=== PATIENT | male | born 1950 | race Caucasian/White ===

== ENCOUNTER 2020-06-21 09:47 | Inpatient (IN) ==
[2020-06-21] MEDS ORDERED: morphine 10 MG/ML VIAL IV PRN (10:17)
[2020-06-21] MEDS ORDERED: PROCHLORPERAZINE 10 MG/2 ML VIAL IV ONE (10:17)
--- NOTE | 2020-06-21 10:27 | Emergency Department Note ---
Extremity Problem HPI General Chief complaint: Extremity Problem,Nontraumatic Stated complaint: right leg swelling Time Seen by Provider: 06/21/20 09:57 Source: patient, RN notes reviewed and old records reviewed Mode of arrival: ambulatory Limitations: no limitations History of Present Illness HPI Narrative: Narrative: MD Complaint: extremity pain and extremity swelling Onset (ago): week(s) (2) Consistency: constant Location: right and lower extremity Quality: aching Improves with: immobilization and elevation Worsens with: range of motion, walking and exertion Associated symptoms: Reports shortness of breath; Denies chest pain, fever, arthralgias and rash Context: history of DVT Related Data Home Medications Medication Instructions Recorded Confirmed warfarin 6 mg PO DAILY 06/20/15 06/21/20 bupropion HBr 174 mg 174 mg PO QAM 09/15/16 06/21/20 tablet,extended release 24 hr omeprazole 40 mg capsule,delayed 40 mg PO QDAY 09/15/16 06/21/20 release duloxetine 90 mg PO DAILY 06/21/20 06/21/20 lisinopril 40 mg PO DAILY 06/21/20 06/21/20 lisinopril mg PO 06/21/20 metoprolol succinate 50 mg PO DAILY 06/21/20 06/21/20 Previous Rx's Medication Instructions Recorded albuterol sulfate 90 mcg/actuation 2 puff INHALATION Q4HP PRN #1 04/09/15 aerosol inhaler inhaler Allergies Allergy/AdvReac Type Severity Reaction Status Date / Time Amoxicillin [From Augmentin] Allergy Mild Itching Verified 05/12/20 10:49 Review of Systems ROS ROS Narrative: Narrative: Constitutional: Denies fever, chills and weakness Eyes: Denies vision change ENT ED: Denies throat pain Cardiovascular: Denies chest pain Respiratory: Reports shortness of breath, cough and wheezes Gastrointestinal: Reports other (Occasional bright red blood per rectum); Denies abdominal pain Musculoskeletal: Reports other (Swelling to right lower extremity); Denies back pain Integumentary: Denies rash Neurological: Denies headache Psychiatric: Denies depression Endocrine: Denies fatigue Hematological/Lymphatic: Denies easy bruising Allergic/Immunologic: Denies urticaria PFSH Narrative Patient History Narrative: Narrative: Medical/Surgical/Family History All Active Problems (Updated 06/21/20 @ 13:40 by Td Mckeon MD) Scalp laceration (Acute) Influenza (Acute) Chest wall trauma (Acute) DVT of axillary vein, acute right (Acute) History of colon polyps (Chronic) Rosacea (Chronic) Skin cancer (Chronic) Pneumothorax, iatrogenic (Chronic) Lung nodule (Chronic) Recurrent pneumonia (Chronic) Erectile dysfunction (Chronic) Peripheral edema (Chronic) Swollen feet (Chronic) Bleeding hemorrhoids (Chronic) Encounter for smoking cessation counseling (Chronic) Hematuria (Chronic) COPD exacerbation (Chronic) Pneumonia (Chronic) Pulmonary infiltrate in left lung on chest x-ray (Chronic) Mass of left lung (Chronic) Basosquamous carcinoma (Chronic) Anticoagulant long-term use (Chronic) Suicidal ideation (Chronic) Suicidal behavior (Chronic) Parkinson's disease (Chronic) Obesity (Chronic) Skin lesion (Chronic) Factor V Leiden mutation (Chronic) IBS (irritable bowel syndrome) (Chronic) Hypertension, essential (Chronic) Hyperlipidemia (Chronic) Hearing loss (Chronic) GERD (gastroesophageal reflux disease) (Chronic) Diabetes mellitus, type II (Chronic) Depressive disorder (Chronic) Medical History Anticoagulant long-term use Basosquamous carcinoma 10/17/2014 - Dr. Cobos: Skin biopsy of left posterior auricular, margins free of involvment Bleeding hemorrhoids COPD exacerbation Depressive disorder Diabetes mellitus, type II Encounter for smoking cessation counseling Erectile dysfunction Factor V Leiden mutation GERD (gastroesophageal reflux disease) Hearing loss Bilateral Hematuria History of colon polyps Hyperlipidemia Hypertension, essential IBS (irritable bowel syndrome) Lung nodule Mass of left lung Obesity Parkinson's disease Peripheral edema Pneumonia Pneumothorax, iatrogenic Pulmonary infiltrate in left lung on chest x-ray Recurrent pneumonia Rosacea Skin cancer Skin lesion 12/27/2013 Suicidal behavior Attempt and tendency Suicidal ideation Swollen feet Surgical History History of adenoidectomy History of colectomy History of ear surgery numerous History of vasectomy Status post biopsy of skin 10/17/2014 - Dr. Cobos: Left Posterior Auricular (Blue - 12 O'clock) Family History Other No pertinent family history Social History Smoking Status: Current every day smoker Alcohol Intake Frequency: 0-2 drinks per day Substance Use: does not use Exam Narrative Narrative: Narrative: General Limitations: no limitations General appearance: Present alert and in no apparent distress Head Head: Present atraumatic and normocephalic Eye Eye: Present normal appearance, PERRL and EOMI ENT ENT: Present normal exam and mucous membranes moist Neck Neck: Present normal inspection and full ROM Chest Chest: Present normal inspection; Absent tenderness Respiratory Respiratory: Present wheezes; Absent respiratory distress, rales/crackles and stridor Cardiovascular Cardiovascular: Present regular rate, normal rhythm and systolic murmur Adbominal Abdominal: Present soft; Absent distention, tenderness, guarding and rebound Extremities Extremities: Present full ROM, tenderness, normal capillary refill, pedal edema, pretibial edema and calf tenderness Back Back: Present normal inspection; Absent CVA tenderness (R) and CVA tenderness (L) Neurological Neurological: Present alert and oriented X3 Psychiatric Psychiatric: Present normal affect and normal mood Skin Skin: Present warm (WNL); Absent rash Course Vital Signs Vital signs: Vital Signs Temperature 97 F 06/21/20 09:53 Pulse Rate 84 06/21/20 09:53 Respiratory Rate 30 H 06/21/20 09:53 Blood Pressure 160/100 06/21/20 09:53 Pulse Oximetry (%) 98 06/21/20 09:53 Temperature 97 F 06/21/20 09:53 Pulse Rate 72 06/21/20 14:31 Respiratory Rate 22 06/21/20 14:31 Blood Pressure 149/95 06/21/20 14:31 Pulse Oximetry (%) 96 06/21/20 14:31 [facility] MDM Narrative Medical decision making narrative: Narrative: Patient with a history of DVT in the right lower extremity 2 years ago complains of similar presentation patient is currently on warfarin with therapeutic INR. Doppler ultrasound reveals a large acute DVT in the left lower extremity up to the femoral vein. Patient is required pain medicines for the discomfort. Discussed patient with Dr. Davidson of interventional radiology who feels that he the patient is not a candidate for point thrombolysis or thrombectomy. Recommendation is to place patient on heparin and transition to Xarelto. If the patient no shows no improvement on heparin consider thrombolysis. Lab Data Result diagrams: 06/21/20 10:30 06/21/20 10:30 Labs: Lab Results 06/21/20 06/21/20 06/21/20 Range/Units 10:30 10:30 10:30 WBC 5.3 (4.5-11.0) K/mcL RBC 4.69 (4.50-5.90) M/mcL Hgb 14.6 (13.5-16.5) g/dL Hct 44.0 (41.0-55.0) % MCV 93.8 (80.0-100.0) fL MCH 31.1 (26.0-34.0) pg MCHC 33.2 (31.0-36.0) g/dL RDW 17.2 H (11.5-14.5) % Plt Count 236 (140-440) K/mcL MPV 9.6 (7.4-10.4) fL Neut % (Auto) 69.6 (38.0-78.0) % Lymph % (Auto) 19.0 (15.0-49.0) % [place] % (Auto) 8.9 (1.0-12.0) % Eos % (Auto) 1.7 (0.0-7.0) % Baso % (Auto) 0.8 (0.0-2.0) % Lymph # (Auto) 1.01 L (1.50-4.80) K/mcL [place] # (Auto) 0.47 (0.10-0.90) K/mcL Eos # (Auto) 0.09 (0.00-0.70) K/mcL Baso # (Auto) 0.04 (0.00-0.20) K/mcL Absolute Neutrophils 3.70 (1.80-8.00) K/mcL PT 22.7 H (11.9-14.5) sec INR 1.9 H (0.9-1.1) D-Dimer (0.27-0.50) ug/mL Sodium 138 (133-145) mmol/L Potassium 3.3 (3.3-5.1) mmol/L Chloride 101 (96-108) mmol/L Carbon Dioxide 28 (22-30) mmol/L Anion Gap 9.0 (8.0-16.0) BUN 10 (8-23) mg/dL Creatinine 0.7 (0.7-1.2) mg/dL GFR Calculation 97 Glucose 104 (70-105) mg/dL Calcium 8.4 L (8.6-10.4) mg/dL Total Bilirubin 0.6 (0.1-1.0) mg/dL AST 28 (<40) U/L ALT 13 (<40) U/L Alkaline Phosphatase 117 (39-117) U/L Total Protein 6.5 (5.9-8.4) gm/dL Albumin 3.3 (3.2-5.2) gm/dL Globulin 3.2 (2.2-3.7) gm/dL Albumin/Globulin Ratio 1.0 (1.0-2.3) 06/21/20 Range/Units 10:30 WBC (4.5-11.0) K/mcL RBC (4.50-5.90) M/mcL Hgb (13.5-16.5) g/dL Hct (41.0-55.0) % MCV (80.0-100.0) fL MCH (26.0-34.0) pg MCHC (31.0-36.0) g/dL RDW (11.5-14.5) % Plt Count (140-440) K/mcL MPV (7.4-10.4) fL Neut % (Auto) (38.0-78.0) % Lymph % (Auto) (15.0-49.0) % [place] % (Auto) (1.0-12.0) % Eos % (Auto) (0.0-7.0) % Baso % (Auto) (0.0-2.0) % Lymph # (Auto) (1.50-4.80) K/mcL [place] # (Auto) (0.10-0.90) K/mcL Eos # (Auto) (0.00-0.70) K/mcL Baso # (Auto) (0.00-0.20) K/mcL Absolute Neutrophils (1.80-8.00) K/mcL PT (11.9-14.5) sec INR (0.9-1.1) D-Dimer 3.84 H (0.27-0.50) ug/mL Sodium (133-145) mmol/L Potassium (3.3-5.1) mmol/L Chloride (96-108) mmol/L Carbon Dioxide (22-30) mmol/L Anion Gap (8.0-16.0) BUN (8-23) mg/dL Creatinine (0.7-1.2) mg/dL GFR Calculation Glucose (70-105) mg/dL Calcium (8.6-10.4) mg/dL Total Bilirubin (0.1-1.0) mg/dL AST (<40) U/L ALT (<40) U/L Alkaline Phosphatase (39-117) U/L Total Protein (5.9-8.4) gm/dL Albumin (3.2-5.2) gm/dL Globulin (2.2-3.7) gm/dL Albumin/Globulin Ratio (1.0-2.3) Radiology Data Radiology results reviewed: Yes I reviewed the patient's radiology results. Radiology results narrative: Doppler shows acute DVT entire rightlower extremity. 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: No Clinical Impression: Factor V Leiden mutation, DVT of axillary vein, acute right Patient Disposition: Xfer As Inpt ([facility]) Follow up with: Claudette Minor MD [Primary Care Provider] - Prescriptions: No Action albuterol sulfate 1 PUFF inhaler 2 puff INHALATION Q4HP PRN (Reason: wheezing ) Qty: 1 RF: 1 warfarin 4 MG tablet 6 mg PO DAILY RF: 0 metoprolol succinate 50 mg tablet extended release 24 hr 50 mg PO DAILY RF: 0 lisinopril 40 mg tablet PO RF: 0 lisinopril 40 mg tablet 40 mg PO DAILY RF: 0 duloxetine 30 mg capsule,delayed release(DR/EC) 90 mg PO DAILY RF: 0 omeprazole 40 mg capsule,delayed release(DR/EC) 40 mg PO QDAY RF: 0 bupropion HBr 174 mg tablet extended release 24 hr 174 mg PO QAM RF: 0
[2020-06-21 11:18] LABS: Basophils # (Auto) 0.04 K/mcL (0.00-0.20); Basophils % (Auto) 0.8 % (0.0-2.0); Eosinophils # (Auto) 0.09 K/mcL (0.00-0.70); Eosinophils % (Auto) 1.7 % (0.0-7.0); Hemoglobin 14.6 g/dL (13.5-16.5); Lymphocytes # (Auto) 1.01 K/mcL (1.50-4.80); Mean Cell Volume 93.8 fL (80.0-100.0); Mean Corpuscular HGB Conc 33.2 g/dL (31.0-36.0); Mean Platelet Volume 9.6 fL (7.4-10.4); Monocytes # (Auto) 0.47 K/mcL (0.10-0.90); Monocytes % (Auto) 8.9 % (1.0-12.0); Neutrophils % (Auto) 69.6 % (38.0-78.0); Platelet Count 236 K/mcL (140-440); RBC 4.69 M/mcL (4.50-5.90); Red Cell Distribution Width 17.2 % (11.5-14.5); WBC 5.3 K/mcL (4.5-11.0)
--- NOTE | 2020-06-21 11:24 | XRay Report ---
INDICATION: SOB history of COPD TECHNIQUE: AP portable upright chest x-ray COMPARISON: Previous chest x-rays dated 03/07/2019, 04/24/2015 FINDINGS: Lungs:No parenchymal consolidation. Mild interstitial density at the left lung base is probably chronic. No new abnormality. Heart, vascular:No significant cardiomegaly. Pulmonary vascularity is normal. No pulmonary edema or pulmonary congestion Mediastinum, andre:No mediastinal widening. No hilar mass Pleura:No pleural fluid. No pleural-based mass or calcification Skeletal:Negative. IMPRESSION: 1. COPD 2. No acute abnormality. Interpreted and Authenticated by: Adonis Díaz 06/21/20
[2020-06-21 11:34] LABS: INR 1.9 (0.9-1.1); Prothrombin Time 22.7 sec (11.9-14.5)
--- NOTE | 2020-06-21 11:38 | Ultrasound Report ---
INDICATION: Pain and swelling COMPARISON: None. TECHNIQUE: Grayscale and color flow Doppler spectral imaging of the deep venous system in the right lower extremity. FINDINGS: Extensive acute deep venous thrombosis. There is acute DVT in the left femoral vein, popliteal vein, peroneal veins. Common femoral vein, greater saphenous vein, and posterior tibial veins are patent IMPRESSION: Acute deep venous thrombosis in the left femoral vein, popliteal vein, and peroneal veins Interpreted and Authenticated by: Adonis Díaz 06/21/20
[2020-06-21 11:41] LABS: ALT/SGPT 13 U/L (<40); AST/SGOT 28 U/L (<40); Albumin 3.3 gm/dL (3.2-5.2); Alkaline Phosphatase 117 U/L (39-117); Bilirubin,Total 0.6 mg/dL (0.1-1.0); Blood Urea Nitrogen 10 mg/dL (8-23); Calcium 8.4 mg/dL (8.6-10.4); Carbon Dioxide 28 mmol/L (22-30); Chloride 101 mmol/L (96-108); Globulin 3.2 gm/dL (2.2-3.7); Glomerular Filtration Rate 97; Glucose 104 mg/dL (70-105)
[2020-06-21] MEDS ORDERED: HEPARIN 5,000 UNIT/ML VIAL IV ONE (14:05)
--- NOTE | 2020-06-21 15:19 | Internal Med History&Physical ---
HPI History of Present Illness Patient information: Note initiated : 06/21/20 at 3:17 pm Service Date, if different from initiated Date: [] Patient: Tashi Robison 70 y/o M admitted on for right leg swelling. Chief Complaint: [] History of present illness: Mr. Robison is a 70 year old with a history of DVT, factor V Leiden, hypertension, GERD, depression presented to the emergency department for right lower extremity swelling and found to have an extensive right lower extremity DVT. The patient says that he has had DVTs in the right lower extremity before as well as intra-abdominal veins. The patient was taking Coumadin history of DVT in the setting of factor Leiden however INR is 9 in the ED. The patient says that his last INR was about 1.6 a week ago. Patient says he noticed the right lower extremity edema starting about 2 weeks ago. In the ED, diagnosis was made with a right lower extremity venous duplex which showed acute deep vein thrombosis in the left femoral vein, popliteal veins, and peroneal veins. The common femoral vein, greater saphenous vein, and posterior tibial veins were patent. The ED provider discussed the case with interventional radiology at [facility] in [facility]. Interventional radiology recommended anticoagulation for a couple days and monitoring for progress. In the patient's edema does not improve then eventual radiology would consider catheter directed thrombolysis as an extensive DVT. The patient was admitted for anticoagulation with heparin and close monitoring. The patient is at risk for pulmonary embolism given the extensive nature of the DVT. Review of systems Constitutional: no fever, fatigue, or weight loss Eyes: no vision changes or pain Cardiovascular: no chest pain, no palpitations Respiratory: no cough or dyspnea Gastrointestinal: Mild abdominal discomfort, no nausea, vomiting, or diarrhea Genitourinary: no dysuria or difficulty voiding Musculoskeletal: Positive for right lower extremity edema Integumentary: no skin lesion or wound Neurological: no focal weakness or numbness Psychiatric: no anxiety or depression PFSH PFSH All Active Problems (Updated 06/21/20 @ 13:40 by Td Mckeon MD) Scalp laceration (Acute) Influenza (Acute) Chest wall trauma (Acute) DVT of axillary vein, acute right (Acute) History of colon polyps (Chronic) Rosacea (Chronic) Skin cancer (Chronic) Pneumothorax, iatrogenic (Chronic) Lung nodule (Chronic) Recurrent pneumonia (Chronic) Erectile dysfunction (Chronic) Peripheral edema (Chronic) Swollen feet (Chronic) Bleeding hemorrhoids (Chronic) Encounter for smoking cessation counseling (Chronic) Hematuria (Chronic) COPD exacerbation (Chronic) Pneumonia (Chronic) Pulmonary infiltrate in left lung on chest x-ray (Chronic) Mass of left lung (Chronic) Basosquamous carcinoma (Chronic) Anticoagulant long-term use (Chronic) Suicidal ideation (Chronic) Suicidal behavior (Chronic) Parkinson's disease (Chronic) Obesity (Chronic) Skin lesion (Chronic) Factor V Leiden mutation (Chronic) IBS (irritable bowel syndrome) (Chronic) Hypertension, essential (Chronic) Hyperlipidemia (Chronic) Hearing loss (Chronic) GERD (gastroesophageal reflux disease) (Chronic) Diabetes mellitus, type II (Chronic) Depressive disorder (Chronic) Medical History Anticoagulant long-term use Basosquamous carcinoma 10/17/2014 - Dr. Cobos: Skin biopsy of left posterior auricular, margins free of involvment Bleeding hemorrhoids COPD exacerbation Depressive disorder Diabetes mellitus, type II Encounter for smoking cessation counseling Erectile dysfunction Factor V Leiden mutation GERD (gastroesophageal reflux disease) Hearing loss Bilateral Hematuria History of colon polyps Hyperlipidemia Hypertension, essential IBS (irritable bowel syndrome) Lung nodule Mass of left lung Obesity Parkinson's disease Peripheral edema Pneumonia Pneumothorax, iatrogenic Pulmonary infiltrate in left lung on chest x-ray Recurrent pneumonia Rosacea Skin cancer Skin lesion 12/27/2013 Suicidal behavior Attempt and tendency Suicidal ideation Swollen feet Surgical History History of adenoidectomy History of colectomy History of ear surgery numerous History of vasectomy Status post biopsy of skin 10/17/2014 - Dr. Cobos: Left Posterior Auricular (Blue - 12 O'clock) Family History Other No pertinent family history Social History (Updated 09/15/16 @ 11:16 by Carissa Mckeon RN) marital status: occupational status: retired and disabled physical activity: none alcohol intake frequency: 0-2 drinks per day substance use type: does not use MEDS/ALLERGIES Home Medications and Allergies Home Medications Medication Instructions Recorded Confirmed Type albuterol sulfate 90 mcg/actuation 2 puff INHALATION Q4HP PRN #1 04/09/15 06/21/20 Rx aerosol inhaler inhaler warfarin 6 mg PO DAILY 06/20/15 06/21/20 History bupropion HBr 174 mg 174 mg PO QAM 09/15/16 06/21/20 History tablet,extended release 24 hr omeprazole 40 mg capsule,delayed 40 mg PO QDAY 09/15/16 06/21/20 History release duloxetine 90 mg PO DAILY 06/21/20 06/21/20 History lisinopril 40 mg PO DAILY 06/21/20 06/21/20 History lisinopril mg PO 06/21/20 History metoprolol succinate 50 mg PO DAILY 06/21/20 06/21/20 History Allergies Allergy/AdvReac Type Severity Reaction Status Date / Time Amoxicillin [From Augmentin] Allergy Mild Itching Verified 05/12/20 10:49 EXAM Constitutional Vitals: Temp Pulse Resp BP Pulse Ox 97 F 72 22 149/95 96 06/21/20 09:53 06/21/20 14:31 06/21/20 14:31 06/21/20 14:31 06/21/20 14:31 Additional findings Additional findings: Head: Atraumatic, normal inspection. Eyes: normal appearance, no scleral icterus. Neck: full ROM Respiratory: no respiratory distress. Cardiovascular: normal rate and rhythm, S1, S2. GI/Abdominal: soft, nontender, no guarding. Extremities: Right lower extremity edema 2+ Neurological: CN II-XII intact, intact motor, intact sensation. Psychiatric: normal mood. Skin: Bruising on bilateral, likely related to Coumadin anticoagulation DATA Data Completed and Pending Labs: Labs from last 24 hours 06/21/20 06/21/20 06/21/20 10:30 10:30 10:30 WBC RBC Hgb Hct MCV MCH MCHC RDW Plt Count MPV Neut % (Auto) Lymph % (Auto) [place] % (Auto) Eos % (Auto) Baso % (Auto) Lymph # (Auto) [place] # (Auto) Eos # (Auto) Baso # (Auto) Absolute Neutrophils PT 22.7 H INR 1.9 H D-Dimer 3.84 H Sodium 138 Potassium 3.3 Chloride 101 Carbon Dioxide 28 Anion Gap 9.0 BUN 10 Creatinine 0.7 GFR Calculation 97 Glucose 104 Calcium 8.4 L Total Bilirubin 0.6 AST 28 ALT 13 Alkaline Phosphatase 117 Total Protein 6.5 Albumin 3.3 Globulin 3.2 Albumin/Globulin Ratio 1.0 06/21/20 10:30 WBC 5.3 RBC 4.69 Hgb 14.6 Hct 44.0 MCV 93.8 MCH 31.1 MCHC 33.2 RDW 17.2 H Plt Count 236 MPV 9.6 Neut % (Auto) 69.6 Lymph % (Auto) 19.0 [place] % (Auto) 8.9 Eos % (Auto) 1.7 Baso % (Auto) 0.8 Lymph # (Auto) 1.01 L [place] # (Auto) 0.47 Eos # (Auto) 0.09 Baso # (Auto) 0.04 Absolute Neutrophils 3.70 PT INR D-Dimer Sodium Potassium Chloride Carbon Dioxide Anion Gap BUN Creatinine GFR Calculation Glucose Calcium Total Bilirubin AST ALT Alkaline Phosphatase Total Protein Albumin Globulin Albumin/Globulin Ratio A/P Narrative A/P Narrative: Assessment: 70-year-old male with history of factor V Leiden, recurrent DVTs, hypertension, GERD, tobacco use disorder, admitted for acute right lower extremity DVT in the left femoral vein, popliteal vein, peroneal veins in the setting of subtherapeutic INR. #Acute right lower extremity DVT #Factor V Leiden w/ hx recurrent DVTs #Hypertension #GERD #Depression #Tobacco use disorder Plan -Heparin infusion, monitor for 2 days. If no improvement in edema then discharged on DOAC, if no improvement then discussed with IR (Dr. Davidson). -imaging system administrator -Daily CBC, inpatient panel. -Continue essential home medications except Warfarin. -Nicotine patch and lozenges. -CODE STATUS: Full -Disposition: Home on indefinite DOAC anticoagulation versus transfer to [facility] for catheter directed thrombolysis. Time Spent With Patient Time: Total time spent is greater than 50% in coordination of care (as doc umented) at patient's floor/unit and/or counseling patient:
[2020-06-21] MEDS: morphine 2 MG/ML VIAL IV SCH (15:33)
[2020-06-21] MEDS ORDERED: ONDANSETRON 4 MG/2 ML VIAL IV PRN (16:07)
[2020-06-21] MEDS ORDERED: SENNOSIDES 1 TABLET PO PRN (16:07)
[2020-06-21] MEDS ORDERED: ALBUTEROL SULFATE 200 PUFF INHALER INH PRN (16:07)
[2020-06-21] MEDS ORDERED: LACTULOSE 20 GM/30 ML ORAL.SOL PO PRN (16:07)
[2020-06-21] MEDS: NICOTINE 21 MG PATCH TOPICAL SCH (17:51)
[2020-06-21] MEDS: HEPARIN SOD,PORK IN 0.45% NACL 25,000 UNIT in PREMIX 1 BAG IV SCH (18:06)
[2020-06-21] MEDS: DOCUSATE SODIUM 100 MG CAPSULE PO SCH (20:41)
[2020-06-21] MEDS: 0.9 % SODIUM CHLORIDE 10 ML SYRINGE IV SCH (21:41)
[2020-06-22] MEDS: morphine 2 MG/ML VIAL IV SCH ×4 (00:50→19:44)
[2020-06-22] MEDS: 0.9 % SODIUM CHLORIDE 10 ML SYRINGE IV SCH ×4 (05:31→20:29)
[2020-06-22 07:14] LABS: ALT/SGPT 15 U/L (<40); AST/SGOT 31 U/L (<40); Albumin 2.9 gm/dL (3.2-5.2); Alkaline Phosphatase 94 U/L (39-117); Bilirubin,Direct < 0.2 mg/dL (0-0.3); Bilirubin,Total 0.6 mg/dL (0.1-1.0); Blood Urea Nitrogen 8 mg/dL (8-23); Calcium 7.9 mg/dL (8.6-10.4); Carbon Dioxide 31 mmol/L (22-30); Chloride 102 mmol/L (96-108); Globulin 2.9 gm/dL (2.2-3.7); Glomerular Filtration Rate 103; Glucose 89 mg/dL (70-105); Hematocrit 40.5 % (41.0-55.0); Hemoglobin 13.5 g/dL (13.5-16.5); Lactate Dehydrogenase 204 U/L (135-225); Mean Cell Volume 93.8 fL (80.0-100.0); Mean Corpuscular HGB Conc 33.3 g/dL (31.0-36.0); Mean Platelet Volume 9.5 fL (7.4-10.4); Phosphorous 2.5 mg/dL (2.5-4.5); Platelet Count 210 K/mcL (140-440); RBC 4.32 M/mcL (4.50-5.90); Triglycerides 77 mg/dL (<150); Uric Acid 6.1 mg/dL (2.5-8.0); WBC 4.6 K/mcL (4.5-11.0)
[2020-06-22] MEDS ORDERED: MAGNESIUM SULFATE 2 GM/50 ML BAG IV ONE (07:33)
[2020-06-22] MEDS ORDERED: POTASSIUM CHLORIDE 20 MEQ TABLET PO ONE (07:33)
[2020-06-22] MEDS: DULoxetine 30 MG CAPSULE PO SCH (08:09)
[2020-06-22] MEDS: OMEPRAZOLE 20 MG CAPSULE PO SCH (08:09)
[2020-06-22] MEDS: DOCUSATE SODIUM 100 MG CAPSULE PO SCH ×2 (08:10→20:29)
[2020-06-22] MEDS: LISINOPRIL 20 MG TABLET PO SCH (08:10)
[2020-06-22] MEDS: NICOTINE 21 MG PATCH TOPICAL SCH (08:10)
[2020-06-22] MEDS: METOPROLOL SUCCINATE 50 MG TAB.XL.24H PO SCH (08:10)
[2020-06-22] MEDS: BUPROPION HBR PO SCH (08:54)
[2020-06-22] MEDS ORDERED: LABETALOL 5 MG/ML ML IV PRN (10:06)
[2020-06-22] MEDS: amLODIPine 5 MG TABLET PO SCH (11:32)
--- NOTE | 2020-06-22 12:15 | Internal Med Progress Note ---
SUBJECTIVE Subjective Patient information: Note initiated : 06/22/20 at 12:15 pm Service Date, if different from initiated Date: [] Patient: Tashi Robison 70 y/o M admitted on 06/21/20 for right leg swelling. Chief Complaint: [] Interval history: Mr. Robison is a 70 year old with a history of DVT, factor V Leiden, hypertension, GERD, depression presented to the emergency department for right lower extremity swelling and found to have an extensive right lower extremity DVT. The patient says that he has had DVTs in the right lower extremity before as well as intra-abdominal veins. The patient was taking Coumadin history of DVT in the setting of factor Leiden however INR is 9 in the ED. The patient says that his last INR was about 1.6 a week ago. Patient says he noticed the right lower extremity edema starting about 2 weeks ago. In the ED, diagnosis was made with a right lower extremity venous duplex which showed acute deep vein thrombosis in the left femoral vein, popliteal veins, and peroneal veins. The common femoral vein, greater saphenous vein, and posterior tibial veins were patent. The ED provider discussed the case with interventional radiology at [facility] in [facility]. Interventional radiology recommended anticoagulation for a couple days and monitoring for progress. In the patient's edema does not improve then eventual radiology would consider catheter directed thrombolysis as an extensive DVT. The patient was admitted for anticoagulation with heparin and close monitoring. The patient is at risk for pulmonary embolism given the extensive nature of the DVT. 06/22 Stable overnight but blood pressure elevated-added norvasc. Improvement of right lower extremity edema, continues on heparin infusion. Physical Exam ead: Atraumatic, normal inspection. Eyes: normal appearance, no scleral icterus. Neck: full ROM Respiratory: no respiratory distress. Cardiovascular: normal rate and rhythm, S1, S2. GI/Abdominal: soft, nontender, no guarding. Extremities: Right lower extremity edema-improved. Neurological: CN II-XII intact, intact motor, intact sensation. Psychiatric: normal mood. Skin: mild bruising on bilateral upper extremities Constitutional Vitals: Vital Signs Temp Pulse Resp BP Pulse Ox 98.6 F 72 21 148/101 98 06/22/20 08:00 06/22/20 10:06/22/20 10:06/22/20 10:21 10:01 Period Temp Pulse Resp BP Sys/Rm Pulse Ox Last 24 Hr 97.2 F-98.7 F 60-89 14-25 138-173/72-125 89-98 Intake and Output 06/21/20 06/22/20 06/22/20 21:59 05:59 13:59 Intake Total 0 329 333 Output Total 0 250 700 Balance 0 79 -367 Weight 80.694 kg Intake & Output: Intake & Output 06/21/20 06/22/20 06/22/20 21:59 05:59 13:59 Intake Total 0 329 333 Output Total 0 250 700 Balance 0 79 -367 Weight 80.694 kg Intake: IV 229 93 Heparin/0.45%Ns 25,000 Unit In 229 43 Premix 1 Bag @ 14 UNIT/KG/HR 23 .496 mls/hr IV .[id number] [facility] Rx# :[id number] Oral 0 100 240 Output: Void Amount 0 250 700 Other: Meal Breakfast Percent of Meal Consumed 100% Feeding Ability Independent Urine Appearance Clear Clear Urine Color Dark Penny Bright Yellow Urine Odor Normal Stool Size Small Stool Color Brown Stool Consistency Formed OBJ DATA Labs CBC & Chem 7: 06/22/20 05:00 06/22/20 05:00 Labs: Abnormal Lab Results 06/22/20 06/22/20 06/22/20 05:00 05:00 05:00 RBC 4.32 L Hct 40.5 L RDW 17.0 H Lymph # (Auto) PT INR APTT 46.1 H D-Dimer Potassium 3.1 L Carbon Dioxide 31 H Anion Gap 7.0 L Creatinine 0.6 L Calcium 7.9 L Magnesium 1.2 L Total Protein 5.8 L Albumin 2.9 L 06/22/20 06/21/20 06/21/20 02:23 10:30 10:30 RBC Hct RDW Lymph # (Auto) PT INR APTT 119.7 H D-Dimer 3.84 H Potassium Carbon Dioxide Anion Gap Creatinine Calcium 8.4 L Magnesium Total Protein Albumin 06/21/20 06/21/20 10:30 10:30 RBC Hct RDW 17.2 H Lymph # (Auto) 1.01 L PT 22.7 H INR 1.9 H APTT D-Dimer Potassium Carbon Dioxide Anion Gap Creatinine Calcium Magnesium Total Protein Albumin Meds: Medications Acetaminophen (Acetaminophen 325 Mg Tablet) 650 mg PO Q6HP PRN; Protocol PRN Reason: Per Pain Protocol/Fever > 101 Albuterol Sulfate (Albuterol Sulfate 200 Puff Inhaler) 2 puff INH Q4HP PRN PRN Reason: wheezing Amlodipine Besylate (Amlodipine 5 Mg Tablet) 5 mg PO DAILY [facility] Last Admin: 06/22/20 11:32 Dose: 5 mg Documented by: Docusate Sodium (Docusate Sodium 100 Mg Capsule) 100 mg PO BID [facility] Last Admin: 06/22/20 08:10 Dose: Not Given Documented by: Duloxetine HCl (Duloxetine 30 Mg Capsule) 90 mg PO DAILY [facility] Last Admin: 06/22/20 08:09 Dose: 90 mg Documented by: Heparin Sodium/Sodium Chloride (25,000 unit/ Premix) 500 mls @ 23.496 mls/hr IV .[id number] [facility]; Protocol Last Titration: 06/22/20 07:23 Dose: 14 unit/kg/hr, 23.496 mls/hr Documented by: Labetalol HCl (Labetalol 5 Mg/Ml Ml) 10 mg IV Q10M PRN PRN Reason: Hypertension Lactulose (Lactulose 20 Gm/30 Ml Oral.Lyla) 10 gm PO DAILYP PRN PRN Reason: Constipation Lisinopril (Lisinopril 20 Mg Tablet) 40 mg PO DAILY [facility] Last Admin: 06/22/20 08:10 Dose: 40 mg Documented by: Metoprolol Succinate (Metoprolol Succinate 50 Mg Tab.Xl.24h) 50 mg PO DAILY [facility] Last Admin: 06/22/20 08:10 Dose: 50 mg Documented by: Morphine Sulfate (Morphine 2 Mg/Ml Vial) 2 mg IV Q5MIN [facility]; Protocol Last Admin: 06/22/20 06:54 Dose: 2 mg Documented by: Nicotine (Nicotine 21 Mg Patch) 21 mg TOPICAL DAILY@1000 [facility] Last Admin: 06/22/20 08:10 Dose: 21 mg Documented by: Non-Formulary Medication (Bupropion Hbr) 174 mg PO QAM [facility] Last Admin: 06/22/20 08:54 Dose: Not Given Documented by: Omeprazole (Omeprazole 20 Mg Capsule) 40 mg PO ACB [facility] Last Admin: 06/22/20 08:09 Dose: 40 mg Documented by: Ondansetron HCl (Ondansetron 4 Mg/2 Ml Vial) 4 mg IV Q4HP PRN; Protocol PRN Reason: Nausea And Vomiting Senna (Sennosides 1 Tablet) 2 tab PO HSP PRN PRN Reason: Constipation Sodium Chloride (0.9 % Sodium Chloride 10 Ml Syringe) 10 ml IV Q8 [facility] Last Admin: 06/22/20 05:31 Dose: Not Given Documented by: A/P Narrative A/P Narrative: Assessment: 70-year-old male with history of factor V Leiden, recurrent DVTs, hypertension, GERD, tobacco use disorder, admitted for acute right lower extremity DVT in the left femoral vein, popliteal vein, peroneal veins in the setting of subtherapeutic INR. #Acute right lower extremity DVT #Factor V Leiden w/ hx recurrent DVTs #Hypertension #GERD #Depression #Tobacco use disorder Plan -Heparin infusion, monitor for 2 days. If no improvement in edema then discharged on DOAC, if no improvement then discussed with IR (Dr. Davidson). -licensed direct entry midwife -Daily CBC, inpatient panel. -Continue essential home medications except Warfarin. -Add Norvasc 5 mg daily. -Nicotine patch. -CODE STATUS: Full -Disposition: Probably home tomorrow on indefinite DOAC anticoagulation. Time Spent With Patient Time: Total time spent is greater than 50% in coordination of care (as documented) at patient's floor/unit and/or counseling patient: QUALITY VTE Deep Vein Thrombosis/Pulmonary Embolism Present on Admission: Yes
[2020-06-22] MEDS: HEPARIN SOD,PORK IN 0.45% NACL 25,000 UNIT in PREMIX 1 BAG IV SCH (15:15)
[2020-06-22] MEDS: ACETAMINOPHEN 325 MG TABLET PO PRN (15:17)
[2020-06-22] MEDS ORDERED: TEMAZEPAM 15 MG CAPSULE PO PRN (20:16)
[2020-06-23] MEDS: morphine 2 MG/ML VIAL IV SCH ×2 (05:22→08:47)
[2020-06-23] MEDS: 0.9 % SODIUM CHLORIDE 10 ML SYRINGE IV SCH (05:28)
[2020-06-23 06:25] LABS: Hematocrit 44.5 % (41.0-55.0); Hemoglobin 14.7 g/dL (13.5-16.5); Mean Cell Volume 94.3 fL (80.0-100.0); Mean Platelet Volume 9.5 fL (7.4-10.4); Platelet Count 220 K/mcL (140-440); RBC 4.72 M/mcL (4.50-5.90); Red Cell Distribution Width 16.6 % (11.5-14.5); WBC 4.7 K/mcL (4.5-11.0)
[2020-06-23 06:49] LABS: ALT/SGPT 16 U/L (<40); AST/SGOT 27 U/L (<40); Albumin 3.1 gm/dL (3.2-5.2); Alkaline Phosphatase 96 U/L (39-117); Bilirubin,Direct < 0.2 mg/dL (0-0.3); Bilirubin,Total 0.5 mg/dL (0.1-1.0); Blood Urea Nitrogen 7 mg/dL (8-23); Calcium 8.3 mg/dL (8.6-10.4); Carbon Dioxide 30 mmol/L (22-30); Chloride 102 mmol/L (96-108); Globulin 3.1 gm/dL (2.2-3.7); Glomerular Filtration Rate 103; Glucose 92 mg/dL (70-105); Lactate Dehydrogenase 209 U/L (135-225); Phosphorous 2.5 mg/dL (2.5-4.5); Triglycerides 88 mg/dL (<150); Uric Acid 5.6 mg/dL (2.5-8.0)
[2020-06-23] MEDS: OMEPRAZOLE 20 MG CAPSULE PO SCH (07:43)
[2020-06-23] MEDS: LISINOPRIL 20 MG TABLET PO SCH (07:43)
[2020-06-23] MEDS: amLODIPine 5 MG TABLET PO SCH (07:43)
[2020-06-23] MEDS: DOCUSATE SODIUM 100 MG CAPSULE PO SCH (07:44)
[2020-06-23] MEDS: METOPROLOL SUCCINATE 50 MG TAB.XL.24H PO SCH (07:44)
[2020-06-23] MEDS: DULoxetine 30 MG CAPSULE PO SCH (07:47)
[2020-06-23] MEDS: BUPROPION HBR PO SCH (07:48)
[2020-06-23] MEDS: ACETAMINOPHEN 325 MG TABLET PO PRN (08:47)
[2020-06-23] MEDS ORDERED: buPROPion 150 MG TAB.XL.24H PO SCH (09:00)
[2020-06-23] MEDS: NICOTINE 21 MG PATCH TOPICAL SCH (09:14)
[2020-06-23] MEDS ORDERED: RIVAROXABAN 15 MG TABLET PO SCH (11:05)
--- NOTE | 2020-06-23 11:24 | Discharge Summary ---
Discharge Provider Provider Patient information: Note initiated : 06/23/20 at 11:15 am Service Date, if different from initiated Date: [] Patient: Tashi Robison 70 y/o M admitted on 06/21/20 for right leg swelling. Chief Complaint: [] Date of admission: 06/21/20 16:07 Discharge date: 06/23/20 Primary care physician: Claudette Minor Consults: 06/21/20 Consult to Physician [CONS] Stat Comment: Consulting Provider: Oscar Ramirez Reason For Exam: Physician to Consult Consult to Physician [CONS] Stat Comment: DVT Consulting Provider: [facility] Reason For Exam: Physician to Consult Discharge Meds Discharge Medications Home Medications albuterol sulfate 90 mcg/actuation aerosol inhaler 2 puff INHALATION Q4HP PRN #1 inhaler 04/09/15 [Rx Confirmed 06/21/20 Last Taken 06/19/15] bupropion HBr 174 mg tablet,extended release 24 hr 174 mg PO QAM 09/15/16 [History Confirmed 06/21/20 Last Taken Unknown] omeprazole 40 mg capsule,delayed release 40 mg PO QDAY 09/15/16 [History Confirmed 06/21/20 Last Taken Unknown] duloxetine 90 mg PO DAILY 06/21/20 [History Confirmed 06/21/20 Last Taken Unknown] lisinopril 40 mg PO DAILY 06/21/20 [History Confirmed 06/21/20 Last Taken Unknown] metoprolol succinate 50 mg PO DAILY 06/21/20 [History Confirmed 06/21/20 Last Taken Unknown] temazepam 30 mg PO HS 06/22/20 [History Confirmed 06/22/20 Last Taken Unknown] amlodipine 5 mg PO DAILY #30 tab 06/23/20 [Rx Last Taken Unknown] rivaroxaban [Xarelto] 15 mg PO BID 21 Days #42 tab 06/23/20 [Rx Last Taken Unknown] rivaroxaban [Xarelto] 20 mg PO QDAY #30 tab 06/23/20 [Rx Last Taken Unknown] COURSE Hospital Course Hospital course: Mr. Robison is a 70 year old with a history of DVT, factor V Leiden, hypertension, GERD, depression presented to the emergency department for right lower extremity swelling and found to have an extensive right lower extremity DVT. The patient says that he has had DVTs in the right lower extremity before as well as intra-abdominal veins. The patient was taking Coumadin history of DVT in the setting of factor Leiden however INR is 9 in the ED. The patient says that his last INR was about 1.6 a week ago. Patient says he noticed the right lower extremity edema starting about 2 weeks ago. In the ED, diagnosis was made with a right lower extremity venous duplex which showed acute deep vein thrombosis in the left femoral vein, popliteal veins, and peroneal veins. The common femoral vein, greater saphenous vein, and posterior tibial veins were patent. The ED provider discussed the case with interventional radiology at [facility] in [facility]. Interventional radiology recommended anticoagulation for a couple days and monitoring for progress. In the patient's edema does not improve then eventual radiology would consider catheter directed thrombolysis as an extensive DVT. The patient was admitted for anticoagulation with heparin and close monitoring. The patient is at risk for pulmonary embolism given the extensive nature of the DVT. 06/22 Stable overnight but blood pressure elevated-added norvasc. Improvement of right lower extremity edema, continues on heparin infusion. 06/23 Edema improved, reviewed co-pays for Xarelto, Eliquis, Edoxaban, Dabigatran and all are about the same [place] between $200-$300 per month for the patient. Preference given to Eliquis and Xarelto, Xarelto and Eliquis voucher programs are available per case management. Discussed options with the patient, he selected Xarelto for once a day dosing. Discontinued heparin infusion and started Xarelto. Case management following to assist with voucher program enrollment. Potential discharge today if enrollment can be completed. Post hospital follow up; -Discharged on DVT dosing Xarelto for life long anticoagulation given recurrent DVT in the setting of Factor V Leiden. -Ongoing financial feasibility for Xarelto, if DOAC anticoagulation becomes unaffordable then will probably need to transition back to Coumadin. -Hypertension management-added Norvasc to Lisinopril and Toprol. -Follow up with PCP. Discharge diagnosis: Right lower extremity DVT Secondary discharge diagnosis: Factor V Leiden Recurrent DVT Time Spent with Patient Time attestation: Total time spent providing and/or coordinating discharge services: EXAM Constitutional Vitals: Temp Pulse Resp BP Pulse Ox 97.9 F 67 23 H 151/96 96 06/23/20 08:03 06/23/20 10:17 06/23/20 08:22 06/23/20 10:10 06/23/20 10:17 Additional findings Additional findings: Head: Atraumatic, normal inspection. Eyes: normal appearance, no scleral icterus. Neck: full ROM Respiratory: no respiratory distress. Cardiovascular: normal rate and rhythm, S1, S2. GI/Abdominal: soft, nontender, no guarding. Extremities: full range of motion, right lower extremity improved Neurological: CN II-XII intact, intact motor, intact sensation. Psychiatric: normal mood. Skin: warm, normal color Discharge Data Data Completed and Pending Labs on day of discharge: Labs from last 24 hours 06/23/20 06/23/20 06/23/20 05:08 05:08 05:08 WBC 4.7 RBC 4.72 Hgb 14.7 Hct 44.5 MCV 94.3 MCH 31.1 MCHC 33.0 RDW 16.6 H Plt Count 220 MPV 9.5 APTT 65.6 H Sodium 138 Potassium 3.2 L Chloride 102 Carbon Dioxide 30 Anion Gap 6.0 L BUN 7 L Creatinine 0.6 L GFR Calculation 103 Glucose 92 Uric Acid 5.6 Calcium 8.3 L Phosphorus 2.5 Magnesium 1.8 Total Bilirubin 0.5 Direct Bilirubin < 0.2 GGT 26 AST 27 ALT 16 Alkaline Phosphatase 96 Lactate Dehydrogenase 209 Total Protein 6.2 Albumin 3.1 L Globulin 3.1 Albumin/Globulin Ratio 1.0 Triglycerides 88 06/22/20 15:38 WBC RBC Hgb Hct MCV MCH MCHC RDW Plt Count MPV APTT 116.8 H Sodium Potassium Chloride Carbon Dioxide Anion Gap BUN Creatinine GFR Calculation Glucose Uric Acid Calcium Phosphorus Magnesium Total Bilirubin Direct Bilirubin GGT AST ALT Alkaline Phosphatase Lactate Dehydrogenase Total Protein Albumin Globulin Albumin/Globulin Ratio Triglycerides Discharge Plan Patient/Caregiver Discharge Instructions Activity: increase activity as tolerated Diet: Regular Diet Prescriptions: New Xarelto 15 mg tablet 15 mg PO BID 21 Days Qty: 42 RF: 0 Xarelto 20 mg tablet 20 mg PO QDAY Qty: 30 RF: 12 amlodipine 5 mg Tablet 5 mg PO DAILY Qty: 30 RF: 4 Continued albuterol sulfate 1 PUFF inhaler 2 puff INHALATION Q4HP PRN (Reason: wheezing ) Qty: 1 RF: 1 metoprolol succinate 50 mg tablet extended release 24 hr 50 mg PO DAILY RF: 0 lisinopril 40 mg tablet 40 mg PO DAILY RF: 0 duloxetine 30 mg capsule,delayed release(DR/EC) 90 mg PO DAILY RF: 0 temazepam 15 mg capsule 30 mg PO HS RF: 0 omeprazole 40 mg capsule,delayed release(DR/EC) 40 mg PO QDAY RF: 0 bupropion HBr 174 mg tablet extended release 24 hr 174 mg PO QAM RF: 0 Discontinued warfarin 4 MG tablet 6 mg PO DAILY RF: 0 Follow Up Plan Follow up with: Claudette Minor MD [Primary Care Provider] - Patient Disposition: Home, Self-Care Rehab Potential: Fair Overall status at discharge: patient is progressing back to baseline Discharge Orders: Discharge Order (Routine); Ordered 06/23/20 Ordered By: Oscar MCCONNELL VTE Deep Vein Thrombosis/Pulmonary Embolism Present on Admission: Yes
== END 2020-06-23 12:00 | disposition home or self-care (01) | DRG 300 ==
LOC: ED 09:47 → ICU 16:07
PROVIDERS: ADMIT Internal Medicine; ATTEND Internal Medicine